=== PATIENT | male | born 1960 | race Hispanic/Latino ===

== ENCOUNTER 2017-01-12 16:36 | Emergency (ER) | payer OTHER ==
[2017-01-12] MEDS ORDERED: MOTRIN PO ONE (18:19)
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
[2017-01-12 20:36] VITALS: BP 150/84
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
== END 2017-01-12 20:36 | disposition home or self-care (01) ==
LOC: ED 16:36
DX: R07.89 Other chest pain (principal); M25.532 Pain in left wrist; V49.49XA Driver injured in collision with other motor vehicles in traffic accident, initial encounter; E78.00 Pure hypercholesterolemia, unspecified; F12.10 Cannabis abuse, uncomplicated; X58.XXXA Exposure to other specified factors, initial encounter; Y93.9 Activity, unspecified; Y92.9 Unspecified place or not applicable; Y99.9 Unspecified external cause status
CPT/HCPCS: 71020; 93005; 93010; 99284